=== PATIENT | male | born 1945 | race Caucasian/White ===

== ENCOUNTER 2019-08-13 04:59 | Inpatient (IN) ==
--- NOTE | 2019-07-17 13:20 | Anesthesiology Consultation ---
Date of Service July 17, 2019 Assessment & Plan Chart Review Chart Review: Acceptable Risk for Surgery, Pending: Refer to Additional Notes / Consult section (PAT testing) and Patient seen in Pre Admission Testing Consults Requested none ASA ASA3 Proposed Anesthesia Anesthesia Type: MAC Spinal Regional Regional Laterality: Right Site: Adductor Canal History Surgery Operation Date: 08/13/19 08:50 Proposed Procedures p Right Total Knee Arthroplasty - Benton Oviedo MD Height/Weight Height: 5 ft 4.5 in Weight: 94 kg Allergies Allergy/AdvReac Type Severity Reaction Status Date / Time No Known Allergies Allergy Verified 07/10/19 09:43 Medications Home Medications Medication Instructions Recorded Confirmed Last Taken calcium carbonate [Calcium 500] 500 mg PO BID 07/10/19 07/10/19 Unknown lisinopril 10 mg PO QAM 07/10/19 07/10/19 Unknown pravastatin 40 mg PO HS 07/10/19 07/10/19 Unknown Past Medical History Medical History History of colitis Hyperlipidemia Hypertension Obese Osteoarthritis Exercise / Class Metabolic Activity III < 4 Walking/Shop/Light housework Past Family History Family History Other No significant family history Past Surgical History Surgical History History of cholecystectomy History of colonoscopy History of discectomy LUMBAR History of tooth extraction Orbital fracture RT (REPAIRED) Past Anesthesia History No Hx of Anesthesia Complications and No Family Hx of Anesthesia Complications History of PONV No Hx of PONV and No Hx of Motion Sickness Social History Smoking Status: Never smoker Do You Dip or Chew Tobacco: No Hx Alcohol Use: No Hx Substance Use: No substance use type: does not use Physical Exam Vital Signs Last Vital Signs Temp 37.2 C 07/17/19 13:09 Pulse 64 07/17/19 13:09 Resp 18 07/17/19 13:09 BP 153/72 H 07/17/19 13:09 Pulse Ox 95 07/17/19 13:09 Constitutional + obese ENMT Mouth: + dentures Thyromental Distance: > or= 3.5 Finger Breadths Mallampati Class: II Neck normal visual inspection and trachea midline; neck extension not limited Respiratory normal respiratory effort Auscultation: lungs clear to auscultation bilaterally Cardiovascular Rate/Rhythm: regular rate and regular rhythm Heart Sounds: no murmur Vessels: no carotid bruit Musculoskeletal Spine: normal cervical ROM Neurologic moves all extremities Motor/Sensory: no sensory deficit Psychiatric Orientation: alert; + not oriented x 3 Testing Electrocardiogram Date: 03/20/19 Findings: + SB @ (at 48;NS T wave abnormality) Other Testing 03/20/2019 CT chest-coronary artery calcifications;aortic ASCVD;otherwise unremarkable chest
[2019-07-17 14:48] LABS: Basophils # (auto) 0.04 K/uL (0-0.2); Basophils % (auto) 0.6 %; Eosinophils # (auto) 0.14 K/uL (0-0.5); Hematocrit (blood only) 45.4 % (42-52); Hemoglobin 15.4 g/dL (14.0-18.0); Immature Granulocytes # (auto) 0.02 K/uL (0.00-0.02); Immature Granulocytes % (auto) 0.3 %; Lymphocytes # (auto) 2.16 K/uL (1.2-3.4); Lymphocytes % (auto) 31.3 %; Mean Corpuscular Hemoglobin 31.9 pg (25-34); Mean Corpuscular Hgb Conc 33.9 g/dL (32-36); Mean Platelet Volume 12.1 fL (7.4-10.4); Monocytes # (auto) 0.43 K/uL (0.11-0.59); Monocytes % (auto) 6.2 %; Neutrophils % (auto) 59.6 %; Platelet Count 185 K/uL (130-400); RDW Coefficient of Variation 14.5 % (11.5-14.5); RDW Standard Deviation 49.6 fL (36.4-46.3); Red Blood Count 4.83 M/uL (4.7-6.1); White Blood Count 6.89 K/uL (4.8-10.8)
[2019-07-17 14:49] LABS: Appearance Urine Clear (Clear); Bilirubin Urine Negative (Negative); Blood Urine Negative (Negative); Color Urine Yellow; Glucose Urine UA Negative (Negative); Ketones Urine Negative (Negative); Leukocyte Esterase Urine Negative (Negative); Nitrite Urine Negative (Negative); Protein Urine Negative (Negative); Specific Gravity Urine 1.016 (1.000-1.030); Urobilinogen Urine Negative (Negative); pH Urine 6.5 (4.5-7.5)
[2019-07-17 14:54] LABS: BUN Creatinine Ratio 16.7 (10-20); Calcium 9.5 mg/dl (8.5-10.1); Creatinine Clr Calc Pharmacy 59.9 ml/min; Est GFR (African American) 73.8; Est GFR (Non-African American) 63.7
[2019-07-17 14:59] LABS: INR 1.1 (0.9-1.1); Partial Thromboplastin Time 27.8 Seconds (21.0-31.0); Prothrombin Time 10.9 Seconds (9.0-12.0)
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
[2019-08-13] MEDS ORDERED: dexAMETHasone 4 MG TAB PO SCH (06:00)
[2019-08-13] MEDS ORDERED: ROPIVACAINE 0.5% HCL/PF 150 MG, BUPIVACAINE 0.5% MPF 30 ML, EPINEPHrine 30MG/30ML (OR U... INSTIL SCH (06:00)
[2019-08-13] MEDS ORDERED: LR 15ML/HR IV SCH (06:00)
[2019-08-13] MEDS ORDERED: ACETAMINOPHEN 500 MG TAB PO SCH (06:00)
[2019-08-13] MEDS ORDERED: GABAPENTIN 300 MG CAP PO SCH (06:00)
[2019-08-13] MEDS ORDERED: CeleBREX 200 MG CAP PO SCH (06:00)
[2019-08-13] MEDS ORDERED: FAMOTIDINE 20 MG TAB PO SCH (06:00)
[2019-08-13] MEDS ORDERED: CEFAZOLIN 2000MG 2,000 MG/15 ML SYR IV SCH (06:00)
[2019-08-13] MEDS ORDERED: BUPIVACAINE 0.5 % 5 MG/1 ML PF 10ML VIAL ONE (06:27)
[2019-08-13] MEDS ORDERED: ROPIVACAINE 0.5% 5 MG/ML 30 ML VIAL ONE (06:27)
[2019-08-13] MEDS ORDERED: EPINEPHrine INJ 1 MG/ML AMP ONE (06:28)
[2019-08-13] MEDS ORDERED: ORTHO JOINT ANESTHETIC ONE (06:34)
[2019-08-13] MEDS ORDERED: MIDAZOLAM HCL 1 MG/ML 2ML VIAL ONE (06:34)
[2019-08-13] MEDS ORDERED: BACITRACIN INJ 50,000 UNIT VIAL ONE (06:34)
[2019-08-13] MEDS ORDERED: fentaNYL citrate 100 MCG/2 ML VIAL ONE ×3 (06:34→08:10)
[2019-08-13] MEDS ORDERED: TRANEXAMIC ACID 1,000 MG in 0.9 % SODIUM CHLORIDE 100 ML IV ONE (06:50)
--- NOTE | 2019-08-13 06:50 | History & Physical Bridge Note ---
Date of Service August 13, 2019 History & Physical Bridge Note I have examined the patient, reviewed the History & Physical and in the interval since the performance of the History & Physical I have noted the following changes of clinical significance: no changes noted
[2019-08-13] MEDS ORDERED: ePHEDrine sulfate 50 MG/ML AMP IV PRN (07:17)
[2019-08-13] MEDS ORDERED: HYDROmorphone INJ 1 MG/ML SYRINGE IV PRN (07:17)
[2019-08-13] MEDS ORDERED: ATROPINE SULFATE 0.1 MG/ML 10ML SYR IV PRN (07:17)
[2019-08-13] MEDS ORDERED: fentaNYL citrate 100 MCG/2 ML VIAL IV PRN (07:17)
[2019-08-13] MEDS ORDERED: ONDANSETRON INJ 2 MG/ML 2 ML VIAL IV PRN ×2 (07:17→10:14)
[2019-08-13] MEDS ORDERED: MEPERIDINE HCL 25 MG/ML CARP IV PRN (07:17)
[2019-08-13] MEDS ORDERED: PHENYLEPHRINE 100MCG/ML 5ML SYR IV PRN (07:17)
[2019-08-13] MEDS ORDERED: LABETALOL HCL IV 5 MG/ML 20ML IV PRN (07:17)
[2019-08-13] MEDS ORDERED: PROPOFOL IV EMULSION 10 MG/ML 20 ML VIAL IV ONE ×5 (07:30→08:11)
[2019-08-13] MEDS ORDERED: PHENYLEPHRINE 100MCG/ML 5ML SYR ONE ×2 (07:30→08:11)
[2019-08-13] MEDS ORDERED: ePHEDrine sulfate 50 MG/ML SYR ONE ×2 (07:30→08:11)
--- NOTE | 2019-08-13 08:37 | Operative Report ---
Post Operative Report Pre & Post Diagnosis Operation Date: 08/13/19 07:00 Pre-Op Diagnosis: RIGHT KNEE OSTEOARTHRITIS Post-Op Diagnosis: RIGHT KNEE OSTEOARTHRITIS I identified the patient and participated in the time-out.: Yes Procedure Operation Date: 08/13/19 07:00 Actual Procedures p Right Total Knee Arthroplasty(Right) - Benton Ovieod MD Surgeon Benton Oviedo MD Fisher Purse Seine Efra Flores PA-C Estimated Blood Loss 20 Findings Consistent with Post-Op Diagnosis Specimens Bone and tissue Drains 2 Hemovac Anesthesia Type Spinal MAC Disposition Accompanied Patient To Recovery: No Disposition: Recovery Room Indications The patient is a 74-year-old male long-standing arthritic change in the right knee. He has [id number] medial compartment. He has failed conservative m easures including injection and anti-inflammatory medications and rehab. He wishes to proceed with a right total knee arthroplasty. Description of Procedure Risks benefits and alternatives of surgery including but not limited to infection, DVT, pain, stiffness, need for surgery, damage to blood vessels, damage to nerves or risks of anesthesia were discussed with the patient and they wished to proceed. The patient was identified and the laterality was confirmed and marked. They received a preoperative antibiotic as well as a spinal anesthetic and an abductor canal block. A well-padded tourniquet was applied and then the limb was prepped and draped in standard manner with ChloraPrep. The limb was exsanguinated and the tourniquet was inflated. I made a standard anterior incision. I sharply incised the skin then utilized Bovie electrocautery to achieve hemostasis. I made a medial parapatellar arthrotomy and mobilized the patella laterally. I then excised the anterior horns of the medial and lateral meniscus as well as the infrapatellar fat pad. I elevated a portion of the MCL off of the tibia. I then pinned into place a patient-matched distal femoral cutting guide and made my distal femoral resection. I then pinned into place the 5 in 1 femoral cutting guide. I made my anterior, posterior and chamfer cuts. I then excised the cruciates and the remaining portions of the menisci. I then pinned into place a patient- matched tibial cutting guide and made my tibial resection. I then pinned into place the tibial plate a utilizing alignment gudelia to confirm rotation. I then cut for the post. Utilizing a lamina machine sander and I then removed posterior osteophytes off the femur. I then placed a trial femur into position and cut for the trochlear component. I then sequentially trialed to size the polyethylene until there was good soft tissue balancing and range of motion. I then prepared the patella with a freehand cut utilizing sagittal saw. He had fairly impressive the lateral side where the patella. Just a small sliver of bone was taken laterally and we even things up on the medial side. I sized and drilled for the patella. There was good tracking to the patella no lateral release was needed. All the trial components were removed. The deep tissues were anesthetized with an ortho mix solution. Then with Simplex HV with gentamicin cement, I cemented my definitive components. Definitive components, Contreras and Nephew Konstantin 2: Femur 6 Tibia 5 Poly 11 Patella 32 oval A betadine soak was performed. A deep drain was placed. The arthrotomy was closed with interrupted #1 Vicryl suture subcutaneous tissue was closed with interrupted 2-0 Vicryl suture. The skin was closed with with irish. An Acticoat and Radha dressing were placed. Sterile dressings were applied. All needle and sponge counts were correct at the end of the procedure patient was transferred to the PACU in stable condition without apparent complication. The PA-C was necessary for assistance with procedure for assistance in positioning, prepping, draping, retraction and closure. I attest to the content of the Intraoperative Record and any orders documented therein. Any exceptions are noted below.
--- NOTE | 2019-08-13 09:39 | Anesthesiology Progress Note ---
Date of Service August 13, 2019 Anesthesia Post Procedure Vital Signs Vital Signs: Temp Pulse Pulse Resp BP Pulse Ox 08/13/19 09:35 72 15 120/63 93 08/13/19 09:23 36.4 C L 75 14 117/58 L 95 08/13/19 05:39 36.8 C 58 L 18 179/94 H 93 Transfer of Care Handoff Completed per policy Notes Mental Status: alert / awake / arousable Patient Amnestic to Procedure: Yes Nausea / Vomiting: adequately controlled Pain: adequately controlled Airway Patency, RR, SpO2: stable & adequate BP & HR: stable & adequate Hydration State: stable & adequate Neuraxial Anesthesia: was administered and sensory block is resolving Anesthetic Complications: no major complications apparent and Pt Satisfied with anesthetic care
--- NOTE | 2019-08-13 09:41 | XRay Report ---
XR knee RT 2V routine CLINICAL HISTORY: 74 years-old Male presenting with Surgical Post Op. TECHNIQUE: Frontal and lateral views of the right knee were obtained. COMPARISON: None. FINDINGS: Postsurgical changes of total right knee arthroplasty with patellar resurfacing. Expected intra-artic ular and soft tissue emphysema. Surgical drain in place with overlying skin irish. No malalignment. No periprosthetic fracture. IMPRESSION: Expected postsurgical appearance status post total right knee arthroplasty with patellar resurfacing. Electronically signed by: Benton Smith M.D. 08/13/2019 9:39 AM
[2019-08-13] MEDS ORDERED: METOCLOPRAMIDE HCL INJ 5 MG/ML 2 ML VIAL IV PRN (10:14)
[2019-08-13] MEDS ORDERED: bisacodyL 10 MG SUPP PR PRN (10:14)
[2019-08-13] MEDS ORDERED: NALOXONE HCL 0.4 MG/1 ML VIAL/CARP IV PRN (10:14)
[2019-08-13] MEDS ORDERED: HYDROmorphone INJ 0.5 MG/0.5 ML SYR IV PRN (10:14)
[2019-08-13] MEDS ORDERED: MAGNESIUM HYDROXIDE SUSP 30 ML UDC PO PRN (10:14)
[2019-08-13] MEDS ORDERED: SODIUM CHLORIDE 0.9% 1000ML 1,000 ML IV SCH (10:14)
[2019-08-13] MEDS ORDERED: TAMSULOSIN HCL 0.4 MG CAP PO PRN (10:14)
[2019-08-13] MEDS: ACETAMINOPHEN 500 MG TAB PO SCH ×2 (14:09→22:00)
[2019-08-13] MEDS: CEFAZOLIN 2000MG 2,000 MG/15 ML SYR IV SCH ×2 (14:09→22:00)
[2019-08-13] MEDS: PRAVASTATIN SOD 40 MG TAB PO SCH (20:11)
[2019-08-13] MEDS: CeleBREX 200 MG CAP PO SCH (20:11)
[2019-08-13] MEDS: ASPIRIN 81 MG ECTAB PO SCH (20:11)
[2019-08-13] MEDS: CALCIUM CARBONATE 1250MG TAB PO SCH (20:11)
[2019-08-13] MEDS: SENNA 8.6 MG TAB PO SCH (20:11)
[2019-08-13] MEDS: DOCUSATE SODIUM 100 MG CAP PO SCH (20:14)
[2019-08-14 05:21] LABS: Hematocrit (blood only) 40.6 % (42-52); Hemoglobin 14.1 g/dL (14.0-18.0); Mean Corpuscular Hgb Conc 34.7 g/dL (32-36); Mean Corpuscular Volume 92.1 fL (80-100); Mean Platelet Volume 10.7 fL (7.4-10.4); Platelet Count 220 K/uL (130-400); RDW Coefficient of Variation 14.1 % (11.5-14.5); Red Blood Count 4.41 M/uL (4.7-6.1); White Blood Count 14.06 K/uL (4.8-10.8)
[2019-08-14] MEDS: ACETAMINOPHEN 500 MG TAB PO SCH ×3 (05:46→20:00)
[2019-08-14 05:48] LABS: BUN Creatinine Ratio 16.8 (10-20); Calcium 9.2 mg/dl (8.5-10.1); Creatinine Clr Calc Pharmacy 53.4 ml/min; Est GFR (African American) 65.3; Est GFR (Non-African American) 56.4; Potassium 4.1 mmol/L (3.5-5.1)
--- NOTE | 2019-08-14 07:39 | Orthopedic Progress Note ---
Date of Service August 14, 2019 Assessment & Plan (1) Primary osteoarthritis of right knee: POD#1 Right TKA -PT/OT -Pain management -DVT prophylaxis-ASA 81mg BID, SCDs, TEDs -AM labs-hemoglobin at 14.1 from 15.4 preop. -D/C planning-home with plans on OPPT. Will recheck later today for drain output and progress with PT for possible discharge. Subjective Patient is POD#1 right TKA. Doing well this morning, mild soreness but well controlled. No chest pain, sob, dizziness, wheezing. No other complaints. Review of Systems Review of Systems: All systems reviewed & are unremarkable except as noted in HPI & below Physical Exam Physical Exam: Right knee dressing is c/d/i, IVONNE and hemovac in place. Distally n/v status and sensation intact. No calf tenderness. Good DF. Constitutional: well developed and well nourished; no acute distress Results & Data Vital Signs (Past 12 Hours) Vital Signs Temp Pulse Resp BP BP Pulse Ox 08/14/19 03:40 36.9 C 67 16 144/78 H 93 08/13/19 23:35 36.7 C 67 18 120/69 93 Laboratory Results H & H 07/17/19 08/14/19 Range/Units 13:08 04:50 Hgb 15.4 14.1 (14.0-18.0) g/dL Hct 45.4 40.6 L (42-52) % Coagulation 07/17/19 Range/Units 13:08 INR 1.1 (0.9-1.1)
--- NOTE | 2019-08-14 07:46 | Anesthesiology Progress Note ---
Date of Service August 14, 2019 Anesthesia Post Procedure Vital Signs Vital Signs: Temp Pulse Pulse Resp BP BP Pulse Ox 08/14/19 03:40 36.9 C 67 16 144/78 H 93 08/13/19 23:35 36.7 C 67 18 120/69 93 08/13/19 15:01 36.6 C 67 17 122/68 91 08/13/19 13:00 36.6 C 70 18 147/73 H 95 08/13/19 12:00 65 16 133/67 95 08/13/19 11:00 68 16 123/69 94 08/13/19 10:28 36.6 C 64 18 129/67 94 08/13/19 10:00 36.7 C 73 16 133/71 92 08/13/19 09:45 36.9 C 70 18 136/64 93 08/13/19 09:35 72 15 120/63 93 08/13/19 09:23 36.4 C L 75 14 117/58 L 95 Notes Mental Status: alert / awake / arousable and participated in evaluation Nausea / Vomiting: adequately controlled Pain: adequately controlled Airway Patency, RR, SpO2: stable & adequate BP & HR: stable & adequate Hydration State: stable & adequate Neuraxial Anesthesia: sensory block resolved
[2019-08-14] MEDS: CeleBREX 200 MG CAP PO SCH ×2 (08:55→19:56)
[2019-08-14] MEDS: DOCUSATE SODIUM 100 MG CAP PO SCH ×2 (08:55→19:55)
[2019-08-14] MEDS: CALCIUM CARBONATE 1250MG TAB PO SCH ×2 (08:55→19:57)
[2019-08-14] MEDS: lisinopriL 10 MG TAB PO SCH (08:55)
[2019-08-14] MEDS: MULTIVITAMIN TAB PO SCH (08:55)
[2019-08-14] MEDS: ASPIRIN 81 MG ECTAB PO SCH ×2 (08:55→19:57)
[2019-08-14] MEDS: OXYCODONE HCL IR 5 MG TAB (IMMEDIATE RELEASE) PO PRN ×2 (12:24→19:57)
[2019-08-14] MEDS: SENNA 8.6 MG TAB PO SCH (19:56)
[2019-08-14] MEDS: PRAVASTATIN SOD 40 MG TAB PO SCH (19:57)
[2019-08-15] MEDS: ACETAMINOPHEN 500 MG TAB PO SCH (06:36)
[2019-08-15] MEDS: CALCIUM CARBONATE 1250MG TAB PO SCH (07:43)
[2019-08-15] MEDS: CeleBREX 200 MG CAP PO SCH (07:43)
[2019-08-15] MEDS: MULTIVITAMIN TAB PO SCH (07:43)
[2019-08-15] MEDS: lisinopriL 10 MG TAB PO SCH (07:43)
[2019-08-15] MEDS: ASPIRIN 81 MG ECTAB PO SCH (07:44)
[2019-08-15] MEDS: DOCUSATE SODIUM 100 MG CAP PO SCH (07:46)
--- NOTE | 2019-08-15 08:37 | Orthopedic Progress Note ---
Date of Service August 15, 2019 Assessment & Plan (1) Primary osteoarthritis of right knee: POD#2 Right TKA -PT/OT -Pain management -DVT prophylaxis-ASA 81mg BID, SCDs, TEDs -D/C planning-home with plans on OPPT. Plan for discharge to home today. Subjective Patient sitting up in the chair at the bedside. No complaints this morning. Pain is controlled. He is hoping to go home. Denies shortness of breath, chest pain, lightheadedness. Physical Exam Physical Exam: Radha dressing is clean, dry, and intact. Calves are soft nontender. Neurovascular is intact. Toes are mobile. Results & Data Vital Signs (Past 12 Hours) Vital Signs Temp Pulse Resp BP Pulse Ox 08/15/19 06:49 36.6 C 52 L 18 137/73 93 08/14/19 23:05 36.6 C 54 L 18 135/68 95
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
== END 2019-08-15 10:59 | disposition home or self-care (01) | DRG 470 ==
LOC: ASU 04:59 → 3E 09:31